=== PATIENT | male | born 1960 | race Caucasian/White ===

== ENCOUNTER 2018-04-16 05:28 | Inpatient (IN) | payer MEDICAID, OTHER ==
[~2018-04-16] VITALS: Ht 182.9 cm; Wt 90.7 kg
[2018-04-16] VITALS (39 sets, daily range): BP systolic 45–178; BP diastolic 28–94
[~2018-04-16 05:28] MED LIST: IBUP-2029 PO; LORA10CA PO; TRAM50TA3 PO
[2018-04-16] MEDS ORDERED: LACTATED RINGERS 1,000 ML IV SCH (06:15)
[2018-04-16] MEDS ORDERED: FENTANYL CITRATE/PF 50MCG/ML 2ML VIAL ONE ×2 (06:34→08:32)
[2018-04-16] MEDS ORDERED: ROCURONIUM BROMIDE 10MG/ML VIAL 5ML IV ONE ×2 (06:34→08:05)
[2018-04-16] MEDS ORDERED: NEOSTIGMINE METHYLSULFATE 1MG/ML 10 ML VIAL ONE (06:35)
[2018-04-16] MEDS ORDERED: CEFAZOLIN SODIUM 1000MG/VIAL ONE (06:35)
[2018-04-16] MEDS ORDERED: GLYCOPYRROLATE 0.2 MG/ML 2ML VIAL ONE (06:35)
[2018-04-16] MEDS ORDERED: SODIUM CHLORIDE 0.9% 10ML VIAL ONE (06:35)
[2018-04-16] MEDS ORDERED: PROPOFOL 200MG/20ML VIAL IV ONE ×2 (06:35→08:17)
[2018-04-16] MEDS ORDERED: MIDAZOLAM HCL 2 MG/2 ML VIAL ONE (06:35)
[2018-04-16] MEDS ORDERED: ONDANSETRON HCL 4MG/2ML INJ ONE (06:36)
[2018-04-16] MEDS ORDERED: LIDOCAINE HCL 1% 20ML VIAL (Pyxis) INJ ONE (06:36)
[2018-04-16] MEDS ORDERED: EPHEDRINE SULFATE 50MG/ML VIAL ONE (06:49)
[2018-04-16] MEDS ORDERED: GELATIN SPONGE,ABSORBABLE 12-7MM SPONGE ONE (07:03)
[2018-04-16] MEDS ORDERED: BACITRACIN 50,000 UNITS/VIAL ONE (07:03)
[2018-04-16] MEDS ORDERED: NORMAL SALINE 0.9% 10 ML SYR ONE (07:03)
[2018-04-16] MEDS ORDERED: LIDOCAINE HCL/EPINEPHRINE 1%-EPI 1:100,000 20 ML VIAL ONE (07:03)
[2018-04-16] MEDS ORDERED: THROMBIN (BOVINE) 5000 UNITS/VIAL TOP ONE (07:09)
[2018-04-16] MEDS ORDERED: MEPERIDINE HCL/PF 25MG/ML CPJ IV SCH (11:15)
[2018-04-16] MEDS ORDERED: ONDANSETRON HCL 4MG/2ML INJ IV PRN (12:00)
[2018-04-16] MEDS ORDERED: MORPHINE SULFATE 4 MG/ML CPJ (NOT FOR IM USE) IV PRN (12:00)
[2018-04-16] MEDS ORDERED: NICARDIPINE 100 MG in SODIUM CHLORIDE 0.9% 100 ML IV PRN (12:00)
[2018-04-16] MEDS: DEXT 5%/LACTATED RINGERS 1,000 ML IV SCH ×2 (12:29→18:13)
[2018-04-16] MEDS: CEFAZOLIN 1000MG PREMIX 50 ML IV SCH ×2 (13:09→23:41)
[2018-04-16] MEDS: HYDROMORPHONE PCA 10MG/50ML IV PRN (13:09)
[2018-04-16] MEDS ORDERED: BISACODYL 5MG TABLET PO PRN (16:30)
[2018-04-16] MEDS ORDERED: IPRATROPIUM/ALBUTEROL 0.5-3(2.5)MG/3ML NEB HHN PRN (16:30)
[2018-04-16] MEDS: DOCUSATE SODIUM 100MG CAPSULE PO SCH (18:13)
[2018-04-17] VITALS (55 sets, daily range): BP systolic 54–129; BP diastolic 25–81
[2018-04-17] MEDS: DEXT 5%/LACTATED RINGERS 1,000 ML IV SCH ×3 (02:13→20:58)
[2018-04-17] MEDS: CEFAZOLIN 1000MG PREMIX 50 ML IV SCH ×3 (05:54→21:08)
[2018-04-17 06:22] LABS: BASOPHILS % 0.3 % (0.0-2.0); EOSINOPHILS % 0.2 % (0.0-5.0); HEMATOCRIT. 37.9 % (42.0-52.0); HEMOGLOBIN. 12.9 g/dL (14.0-18.0); LYMPHOCYTES % 12.9 % (20.0-50.0); MEAN CORPUSCULAR HEMOGLOBIN 32.4 pg (28.0-32.0); MEAN CORPUSCULAR VOLUME 94.8 fL (80.0-94.0); MEAN PLATELET VOLUME 7.3 fl (7.4-10.4); MONOCYTES % 7.9 % (2.0-8.0); NEUTROPHILS % 78.7 % (40.0-76.0); PLATELET 247 x1000/uL (130-400); RED CELL DISTRIBUTION WIDTH 12.7 % (11.6-14.6)
[2018-04-17 06:28] LABS: CHLORIDE 107 mEq/L (98-107)
[2018-04-17] MEDS: HYDROMORPHONE PCA 10MG/50ML IV PRN (08:30)
[2018-04-17] MEDS: DOCUSATE SODIUM 100MG CAPSULE PO SCH ×2 (09:00→17:00)
[2018-04-18] VITALS (15 sets, daily range): BP systolic 83–115; BP diastolic 40–78
[2018-04-18] MEDS: HYDROMORPHONE PCA 10MG/50ML IV PRN (04:23)
[2018-04-18] MEDS: DEXT 5%/LACTATED RINGERS 1,000 ML IV SCH (04:35)
[2018-04-18 05:51] LABS: BASOPHILS % 0.1 % (0.0-2.0); EOSINOPHILS % 0.3 % (0.0-5.0); HEMATOCRIT. 38.3 % (42.0-52.0); HEMOGLOBIN. 12.9 g/dL (14.0-18.0); LYMPHOCYTES % 9.6 % (20.0-50.0); MEAN CORPUSCULAR VOLUME 95.2 fL (80.0-94.0); MEAN PLATELET VOLUME 7.3 fl (7.4-10.4); MONOCYTES % 7.4 % (2.0-8.0); NEUTROPHILS % 82.6 % (40.0-76.0); PLATELET 253 x1000/uL (130-400); RED BLOOD CELL COUNT 4.02 mill/uL (4.7-6.1); RED CELL DISTRIBUTION WIDTH 12.9 % (11.6-14.6)
[2018-04-18 06:04] LABS: CHLORIDE 104 mEq/L (98-107)
[2018-04-18] MEDS: DOCUSATE SODIUM 100MG CAPSULE PO SCH ×2 (09:00→17:09)
[2018-04-18] MEDS: CEFAZOLIN 1000MG PREMIX 50 ML IV SCH (09:29)
[2018-04-18] MEDS: HYDROCODONE/APAP 7.5/325MG 1 TAB TABLET PO PRN ×2 (14:25→20:38)
[2018-04-18] MEDS ORDERED: CEFAZOLIN 1000MG PREMIX 50 ML IV SCH (17:00)
[2018-04-18] MEDS: CEPHALEXIN 250MG CAPSULE PO SCH (18:28)
[2018-04-19] MEDS: CEPHALEXIN 250MG CAPSULE PO SCH ×5 (00:16→23:38)
[2018-04-19 04:00] VITALS: BP 90/53
[2018-04-19] MEDS: HYDROCODONE/APAP 7.5/325MG 1 TAB TABLET PO PRN ×3 (05:39→23:39)
[2018-04-19 07:07] LABS: BASOPHILS % 0.6 % (0.0-2.0); EOSINOPHILS % 0.7 % (0.0-5.0); HEMATOCRIT. 37.2 % (42.0-52.0); HEMOGLOBIN. 12.7 g/dL (14.0-18.0); LYMPHOCYTES % 12.8 % (20.0-50.0); MEAN CORPUSCULAR HEMOGLOBIN 32.3 pg (28.0-32.0); MEAN PLATELET VOLUME 7.5 fl (7.4-10.4); NEUTROPHILS % 78.9 % (40.0-76.0); PLATELET 290 x1000/uL (130-400); RED BLOOD CELL COUNT 3.92 mill/uL (4.7-6.1); RED CELL DISTRIBUTION WIDTH 12.7 % (11.6-14.6)
[2018-04-19 07:22] LABS: CHLORIDE 103 mEq/L (98-107)
[2018-04-19 08:00] VITALS: BP 121/62
[2018-04-19] MEDS: DOCUSATE SODIUM 100MG CAPSULE PO SCH ×2 (08:33→17:36)
[2018-04-19 11:55] VITALS: BP 121/62
[2018-04-19 16:00] VITALS: BP 105/60
[2018-04-19 20:00] VITALS: BP 113/76
[2018-04-20] VITALS: BP 110/70
[2018-04-20] MEDS: CEPHALEXIN 250MG CAPSULE PO SCH ×4 (05:53→23:38)
[2018-04-20 07:11] LABS: BASOPHILS % 0.6 % (0.0-2.0); HEMATOCRIT. 35.8 % (42.0-52.0); LYMPHOCYTES % 21.6 % (20.0-50.0); MEAN CORPUSCULAR HEMOGLOBIN 31.8 pg (28.0-32.0); MEAN CORPUSCULAR VOLUME 95.3 fL (80.0-94.0); MEAN PLATELET VOLUME 7.1 fl (7.4-10.4); NEUTROPHILS % 68.8 % (40.0-76.0); PLATELET 343 x1000/uL (130-400); RED BLOOD CELL COUNT 3.76 mill/uL (4.7-6.1); RED CELL DISTRIBUTION WIDTH 12.5 % (11.6-14.6)
[2018-04-20 07:17] LABS: CHLORIDE 105 mEq/L (98-107)
[2018-04-20 08:00] VITALS: BP 102/67
[2018-04-20] MEDS: DOCUSATE SODIUM 100MG CAPSULE PO SCH ×2 (08:52→17:00)
[2018-04-20] MEDS: HYDROCODONE/APAP 7.5/325MG 1 TAB TABLET PO PRN ×3 (09:34→23:38)
[2018-04-20 12:00] VITALS: BP 97/68
[2018-04-20 16:00] VITALS: BP 116/67
[2018-04-20 20:00] VITALS: BP 126/86
[2018-04-21] VITALS: BP 117/56
[2018-04-21] MEDS: CEPHALEXIN 250MG CAPSULE PO SCH ×3 (06:03→17:18)
[2018-04-21] MEDS: HYDROCODONE/APAP 7.5/325MG 1 TAB TABLET PO PRN ×3 (06:07→18:38)
[2018-04-21 08:00] VITALS: BP 105/72
[2018-04-21] MEDS: DOCUSATE SODIUM 100MG CAPSULE PO SCH ×3 (08:59→17:18)
[2018-04-21 12:00] VITALS: BP 109/73
[2018-04-21 16:00] VITALS: BP 135/81
[2018-04-21 20:00] VITALS: BP 107/67
[2018-04-21] MEDS: POLYETHYLENE GLYCOL 3350 (17GM) 1 DOSE PACK PO SCH (21:00)
[2018-04-22] VITALS: BP 107/66
[2018-04-22] MEDS: CEPHALEXIN 250MG CAPSULE PO SCH ×4 (00:13→17:53)
[2018-04-22] MEDS: HYDROCODONE/APAP 7.5/325MG 1 TAB TABLET PO PRN ×4 (00:31→19:58)
[2018-04-22 04:00] VITALS: BP 108/54
[2018-04-22 08:00] VITALS: BP 112/71
[2018-04-22] MEDS: DOCUSATE SODIUM 100MG CAPSULE PO SCH ×4 (08:19→17:49)
[2018-04-22 12:00] VITALS: BP 121/80
[2018-04-22 16:00] VITALS: BP 108/66
[2018-04-22 20:00] VITALS: BP 128/82
[2018-04-22] MEDS: POLYETHYLENE GLYCOL 3350 (17GM) 1 DOSE PACK PO SCH (21:00)
[2018-04-23] VITALS: BP 113/66
[2018-04-23] MEDS: CEPHALEXIN 250MG CAPSULE PO SCH ×5 (01:00→23:18)
[2018-04-23] MEDS: HYDROCODONE/APAP 7.5/325MG 1 TAB TABLET PO PRN ×4 (01:30→23:18)
[2018-04-23 04:00] VITALS: BP 130/86
[2018-04-23 08:00] VITALS: BP 112/80
[2018-04-23] MEDS: DOCUSATE SODIUM 100MG CAPSULE PO SCH ×4 (08:14→18:02)
[2018-04-23 12:00] VITALS: BP 112/80
[2018-04-23 16:00] VITALS: BP 110/80
[2018-04-23 20:00] VITALS: BP 123/78
[2018-04-23] MEDS: POLYETHYLENE GLYCOL 3350 (17GM) 1 DOSE PACK PO SCH (21:00)
[2018-04-24] MEDS: CEPHALEXIN 250MG CAPSULE PO SCH (05:42)
[2018-04-24] MEDS: HYDROCODONE/APAP 7.5/325MG 1 TAB TABLET PO PRN ×2 (05:42→09:34)
[2018-04-24 08:00] VITALS: BP 117/71
[2018-04-24] MEDS: DOCUSATE SODIUM 100MG CAPSULE PO SCH ×2 (08:29→09:00)
[2018-04-24 09:35] VITALS: BP 117/71
== END 2018-04-24 10:15 | disposition home or self-care (01) | DRG 304 ==
LOC: OR 05:28 → MICUSO 05:29 → 6EST 04-18 06:02
PROVIDERS: ADMIT Neurological Surgery; ATTEND Neurological Surgery
PROC: 0SG1071 Fusion of 2 or more Lumbar Vertebral Joints with Autologous Tissue Substitute, Posterior Approach, Posterior Column, Open Approach (ICD-10-PCS; principal; 2018-04-16)
DX: M47.16 Other spondylosis with myelopathy, lumbar region (principal); G72.81 Critical illness myopathy; M48.061 Spinal stenosis, lumbar region without neurogenic claudication; M47.12 Other spondylosis with myelopathy, cervical region; G82.20 Paraplegia, unspecified; G89.4 Chronic pain syndrome; M51.36 Other intervertebral disc degeneration, lumbar region; D72.829 Elevated white blood cell count, unspecified; R50.82 Postprocedural fever; R26.9 Unspecified abnormalities of gait and mobility; R73.9 Hyperglycemia, unspecified; K59.00 Constipation, unspecified; M54.16 Radiculopathy, lumbar region; D64.9 Anemia, unspecified; Z98.1 Arthrodesis status; Z87.891 Personal history of nicotine dependence; Z59.0 Homelessness
CPT/HCPCS: 36415; 72100; 76000; 80048; 86850; 86900; 95925; 95926; 95928; 95929; 97116; 97161; 97166; 97530; 97535; C1713; J0690; J1170; J2175; J2250; J2270; J2405; J2704; J2710; J3010; J3490; J7121

== ENCOUNTER 2018-07-18 10:08 | Emergency (ER) | payer MEDICAID ==
[~2018-07-18] VITALS: Ht 170.2 cm; Wt 92.0 kg
[2018-07-18] MEDS ORDERED: TRAMADOL 50MG TABLET PO ONE (11:45)
[2018-07-18 12:34] VITALS: BP 116/76
== END 2018-07-18 12:28 | disposition home or self-care (01) ==
LOC: ER 10:08
DX: S90.111A Contusion of right great toe without damage to nail, initial encounter (principal); Z91.040 Latex allergy status; Z98.890 Other specified postprocedural states; Z79.899 Other long term (current) drug therapy; V49.88XA Car occupant (driver) (passenger) injured in other specified transport accidents, initial encounter; Y93.89 Activity, other specified; Y92.89 Other specified places as the place of occurrence of the external cause; Y99.8 Other external cause status
CPT/HCPCS: 73630; 99283

== ENCOUNTER 2018-07-30 05:18 | Inpatient (IN) | payer MEDICAID ==
[2018-07-30] VITALS (39 sets, daily range): BP systolic 103–157; BP diastolic 26–88
[~2018-07-30] VITALS: Ht 182.9 cm; Wt 96.2 kg
[2018-07-30] MEDS ORDERED: LACTATED RINGERS 1,000 ML IV SCH (06:15)
[2018-07-30] MEDS ORDERED: LIDOCAINE HCL 1% 20ML VIAL (Pyxis) INJ ONE (06:25)
[2018-07-30] MEDS ORDERED: NORMAL SALINE 0.9% 10 ML SYR ONE (06:25)
[2018-07-30] MEDS ORDERED: THROMBIN (BOVINE) 5000 UNITS/VIAL TOP ONE (06:25)
[2018-07-30] MEDS ORDERED: BACITRACIN 50,000 UNITS/VIAL ONE (06:26)
[2018-07-30] MEDS ORDERED: LIDOCAINE HCL/EPINEPHRINE 1%-EPI 1:100,000 20 ML VIAL ONE ×2 (06:26→06:51)
[2018-07-30] MEDS ORDERED: ROCURONIUM BROMIDE 10MG/ML VIAL 5ML IV ONE (07:48)
[2018-07-30] MEDS ORDERED: FENTANYL CITRATE/PF 50MCG/ML 2ML VIAL ONE ×2 (07:48→08:15)
[2018-07-30] MEDS ORDERED: NEOSTIGMINE METHYLSULFATE 1MG/ML 10 ML VIAL ONE (07:48)
[2018-07-30] MEDS ORDERED: PROPOFOL 200MG/20ML VIAL IV ONE (07:49)
[2018-07-30] MEDS ORDERED: MIDAZOLAM HCL 2 MG/2 ML VIAL ONE (07:49)
[2018-07-30] MEDS ORDERED: GLYCOPYRROLATE 0.2 MG/ML 2ML VIAL ONE ×2 (07:49→09:47)
[2018-07-30] MEDS ORDERED: MORPHINE SULFATE 2 MG/ML CPJ (NOT FOR IM USE) IV PRN (08:00)
[2018-07-30] MEDS ORDERED: ONDANSETRON HCL 4MG/2ML INJ IV PRN (08:00)
[2018-07-30] MEDS ORDERED: ACET-2178 PO (09:11)
[2018-07-30] MEDS ORDERED: NICARDIPINE 100 MG in SODIUM CHLORIDE 0.9% 60 ML IV PRN (10:15)
[2018-07-30] MEDS ORDERED: DIPHENHYDRAMINE INJ IV PRN (10:30)
[2018-07-30] MEDS ORDERED: NALOXONE INJ IV PRN (10:30)
[2018-07-30] MEDS ORDERED: ONDANSETRON INJ IV PRN (10:30)
[2018-07-30] MEDS: HYDROMORPHONE PCA 10MG/50ML IV PRN (11:28)
[2018-07-30] MEDS: CEFAZOLIN 1000MG PREMIX 50 ML IV SCH ×2 (11:40→19:44)
[2018-07-30] MEDS: DEXAMETHASONE 4MG/ML 1ML VIAL IV SCH ×2 (11:40→17:40)
[2018-07-30] MEDS: DEXT 5%/LACTATED RINGERS 1,000 ML IV SCH ×2 (11:41→19:44)
[2018-07-30] MEDS ORDERED: CEFAZOLIN SODIUM 1000MG/VIAL IV SCH (14:00)
[2018-07-31] VITALS (22 sets, daily range): BP systolic 97–143; BP diastolic 63–82
[2018-07-31] MEDS: DEXAMETHASONE 4MG/ML 1ML VIAL IV SCH ×3 (00:02→12:59)
[2018-07-31] MEDS: CEFAZOLIN 1000MG PREMIX 50 ML IV SCH (02:37)
[2018-07-31] MEDS: HYDROMORPHONE PCA 10MG/50ML IV PRN (02:39)
[2018-07-31] MEDS: DEXT 5%/LACTATED RINGERS 1,000 ML IV SCH (04:55)
[2018-07-31 06:35] LABS: HEMATOCRIT. 43.5 % (42.0-52.0); HEMOGLOBIN. 14.5 g/dL (14.0-18.0); MEAN CORPUSCULAR HEMOGLOBIN 31.3 pg (28.0-32.0); MEAN PLATELET VOLUME 7.1 fl (7.4-10.4); PLATELET 305 x1000/uL (130-400); RED BLOOD CELL COUNT 4.63 mill/uL (4.7-6.1); RED CELL DISTRIBUTION WIDTH 13.4 % (11.6-14.6)
[2018-07-31 06:56] LABS: CHLORIDE 108 mEq/L (98-107)
[2018-07-31 08:48] LABS: PLATELET ESTIMATE NORMAL
[2018-07-31] MEDS: DOCUSATE SODIUM 100MG CAPSULE PO SCH ×2 (09:00→16:50)
[2018-07-31] MEDS: HYDROCODONE/ACETAMINOPHEN 5/325MG TABLET PO PRN ×2 (15:38→22:37)
[2018-08-01] VITALS: BP 131/84
[2018-08-01 06:26] LABS: CHLORIDE 108 mEq/L (98-107)
[2018-08-01 06:31] LABS: HEMOGLOBIN. 14.6 g/dL (14.0-18.0); MEAN CORPUSCULAR HEMOGLOBIN 31.8 pg (28.0-32.0); MEAN CORPUSCULAR VOLUME 93.7 fL (80.0-94.0); MEAN PLATELET VOLUME 7.6 fl (7.4-10.4); PLATELET 332 x1000/uL (130-400); RED BLOOD CELL COUNT 4.59 mill/uL (4.7-6.1); RED CELL DISTRIBUTION WIDTH 13.5 % (11.6-14.6)
[2018-08-01 08:00] VITALS: BP 129/77
[2018-08-01] MEDS: DOCUSATE SODIUM 100MG CAPSULE PO SCH (09:00)
[2018-08-01 09:38] LABS: PLATELET ESTIMATE NORMAL
[2018-08-01 12:00] VITALS: BP 117/81
[2018-08-01 12:42] VITALS: BP 129/77
== END 2018-08-01 14:20 | disposition home or self-care (01) | DRG 321 ==
LOC: OR 05:18 → MICUSO 05:19 → 6EST 07-31 19:00
PROVIDERS: ADMIT Internal Medicine; ATTEND Internal Medicine
PROC: 0RG20A0 Fusion of 2 or more Cervical Vertebral Joints with Interbody Fusion Device, Anterior Approach, Anterior Column, Open Approach (ICD-10-PCS; principal; 2018-07-30)
PROC: 0RB30ZZ Excision of Cervical Vertebral Disc, Open Approach (ICD-10-PCS; 2018-07-30)
PROC: BR101ZZ Fluoroscopy of Cervical Spine using Low Osmolar Contrast (ICD-10-PCS; 2018-07-30)
DX: M47.12 Other spondylosis with myelopathy, cervical region (principal); G82.50 Quadriplegia, unspecified; G95.20 Unspecified cord compression; M48.02 Spinal stenosis, cervical region; M25.78 Osteophyte, vertebrae; M54.12 Radiculopathy, cervical region; R26.9 Unspecified abnormalities of gait and mobility; G95.9 Disease of spinal cord, unspecified
CPT/HCPCS: 36415; 72040; 72141; 76000; 80048; 86850; 86900; 88304; 88311; 95925; 95926; 95928; 97116; 97162; 97166; C1713; J0690; J1100; J1170; J2250; J2270; J2405; J2704; J2710; J3010; J3490; J7121; L0172